=== PATIENT | male | born 1960 | race Caucasian/White ===

== ENCOUNTER 2017-09-25 20:51 | Emergency (ER) | payer OTHER ==
[~2017-09-25] VITALS: Ht 180.3 cm; Wt 99.8 kg
[~2017-09-25 20:51] MED LIST: AUGMENTIN 875-1 EACH PO; NORCO 5-325 TA1 EACH PO; PREDNISONE 20 M20 MG PO; PROAIR HFA8.5 GM INH; PROMETHAZINE-C120 ML PO
[2017-09-25] MEDS ORDERED: ASPIR 8181 MG PO (21:23)
[2017-09-25] MEDS ORDERED: LIPITOR 20 MG T20 M1 PO (21:23)
[2017-09-25 22:26] LABS: ABSOLUTE NEUTROPHILS 5.4 thou/uL (1.4-8.2); BASOPHILS 1.3 % (0.0-2.0); EOSINOPHILS 6.1 % (0.0-3.0); HEMATOCRIT 42.8 % (42.0-52.0); HEMOGLOBIN 14.8 gm/dL (14.0-18.0); LYMPHOCYTES 28.3 % (24.0-44.0); MCH 29.8 pg (26.0-34.0); MCHC 34.5 g/dL (28.0-37.0); MCV 86.3 fL (80.0-100.0); MONOCYTES 9.4 % (1.0-8.0); PLATELET COUNT 193 thou/uL (150-400); POLYS 54.9 % (36.0-66.0); RBC 4.96 mil/uL (4.50-6.00); RDW 13.9 % (10.5-14.5); WBC 9.8 thou/uL (4.0-11.0)
[2017-09-25 22:34] LABS: CALCIUM 8.9 mg/dL (8.5-10.1); POTASSIUM 3.8 mmol/L (3.5-5.1)
[2017-09-25 22:40] LABS: ALBUMIN 3.9 g/dL (3.4-5.0); TOTAL BILIRUBIN 0.3 mg/dL (<0.1-1.0); TOTAL PROTEIN 7.4 g/dL (6.4-8.2)
[2017-09-26] MEDS ORDERED: HYDROCODONE-AP1 EAC6 PO (00:21)
[2017-09-26 01:30] VITALS: BP 130/80
== END 2017-09-26 01:31 | disposition home or self-care (01) ==
LOC: ER 20:51
PROVIDERS: Physician Assistant
DX: R13.10 Dysphagia, unspecified (principal); M54.2 Cervicalgia; E78.00 Pure hypercholesterolemia, unspecified; Z90.49 Acquired absence of other specified parts of digestive tract; Z91.041 Radiographic dye allergy status

== ENCOUNTER → 2018-01-10 | Outpatient (CLI) | payer OTHER ==
[~2018-01-10] MED LIST changes: +ASPIR 8181 MG PO; +HYDROCODONE-AP1 EAC6 PO; +LIPITOR 20 MG T20 M1 PO
== END ==
LOC: MRI 08:09
DX: M75.102 Unspecified rotator cuff tear or rupture of left shoulder, not specified as traumatic (principal); E78.5 Hyperlipidemia, unspecified

== ENCOUNTER 2018-02-09 22:15 | Emergency (ER) | payer OTHER ==
[~2018-02-09] VITALS: Ht 180.3 cm; Wt 100.7 kg
--- NOTE | ~2018-02-09 | EKG ---
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1960 Requested By: Luis Chang Order Number: [id number] MD: Fernando Geller Measurements Intervals [place] Rate: 74 P: 44 NE: 143 QRS: 19 QRSD: 91 T: 17 QT: 386 QTc: 429 Interpretive Statements Sinus rhythm Abnormal R-wave progression, early transition Compared to ECG 08/09/2015 10:27:32 No significant changes Electronically Signed On 02-10-2018 13:04:33 CDT by Fernando Geller [email or web address] <ELECTRONICALLY SIGNED> By: Fernando Geller MD, [facility] 02/10/18 1304 2233 32 Fernando Geller MD, FACC /EPI
[2018-02-09 22:55] LABS: ABSOLUTE NEUTROPHILS 6.4 thou/uL (1.4-8.2); BASOPHILS 1.5 % (0.0-2.0); EOSINOPHILS 5.2 % (0.0-3.0); HEMATOCRIT 39.7 % (42.0-52.0); HEMOGLOBIN 13.9 gm/dL (14.0-18.0); LYMPHOCYTES 22.4 % (24.0-44.0); MCH 29.8 pg (26.0-34.0); MCHC 34.9 g/dL (28.0-37.0); MCV 85.4 fL (80.0-100.0); MONOCYTES 10.6 % (1.0-8.0); PLATELET COUNT 145 thou/uL (150-400); POLYS 60.3 % (36.0-66.0); RBC 4.64 mil/uL (4.50-6.00); RDW 13.4 % (10.5-14.5); URINE BILIRUBIN NEGATIVE (Negative); URINE BLOOD NEGATIVE (Negative); URINE CLARITY CLEAR; URINE COLOR YELLOW; URINE GLUCOSE-RANDOM* NEGATIVE (Negative); URINE KETONES NEGATIVE (Negative); URINE LEUKOCYTES-REFLEX NEGATIVE (Negative); URINE NITRITE-REFLEX NEGATIVE (Negative); URINE PROTEIN (DIPSTICK) NEGATIVE (Negative); URINE UROBILINOGEN 0.2 E.U./dl (0.2-1.0); WBC 10.6 thou/uL (4.0-11.0)
[2018-02-09 23:02] LABS: CALCIUM 8.4 mg/dL (8.5-10.1); CREATININE 1.2 mg/dL (0.7-1.3); POTASSIUM 3.6 mmol/L (3.5-5.1)
[2018-02-09 23:08] LABS: ALBUMIN 3.7 g/dL (3.4-5.0); TOTAL BILIRUBIN 0.4 mg/dL (<0.1-1.0); TOTAL PROTEIN 6.9 g/dL (6.4-8.2)
[2018-02-10] MEDS ORDERED: FLAGYL500 MG PO (01:36)
[2018-02-10] MEDS ORDERED: CIPROFLOXACIN500 M1 PO (01:36)
[2018-02-10 02:17] VITALS: BP 132/88
== END 2018-02-10 02:18 | disposition home or self-care (01) ==
LOC: ER 22:15
PROVIDERS: Emergency Medicine
DX: K57.92 Diverticulitis of intestine, part unspecified, without perforation or abscess without bleeding (principal); E78.00 Pure hypercholesterolemia, unspecified; J32.9 Chronic sinusitis, unspecified; K58.9 Irritable bowel syndrome, unspecified; Z90.49 Acquired absence of other specified parts of digestive tract; Z91.041 Radiographic dye allergy status

== ENCOUNTER 2018-04-11 05:25 | Day surgery (SDC) | payer OTHER ==
[~2018-04-11] VITALS: Ht 180.3 cm; Wt 99.8 kg
--- NOTE | ~2018-04-11 | O ---
[facility] [address] OPERATIVE REPORT Name: RICHA SWAN Room #: 150-4 [facility] M.R.#: [id number] Admission: 04/11/18 Attend Phys: Jignesh Ybarra Discharge: Date of : 60 Report #: [id number] THIS REPORT FOR: //name// CC: Jignesh MURRELLSSICA HORTENSIA DATE OF SERVICE: 04/11/2018 PREOPERATIVE DIAGNOSES: Left shoulder pain, rotator cuff tear, impingement syndrome, split tear in the proximal biceps tendon. POSTOPERATIVE DIAGNOSES: Left shoulder rotator cuff tear, small; long head of the biceps tendon tear and subluxation; subacromial bursitis; intra-articular synovitis. PROCEDURE PERFORMED: Left shoulder arthroscopy, rotator cuff repair, arthroscopic biceps tenodesis, extensive debridement. SURGEON: Jignesh Franklin MD ANESTHESIA: General with preoperative ultrasound-guided interscalene block. FLUIDS: Approximately 1000 mL crystalloid. ESTIMATED BLOOD LOSS: Less than 5 mL. DESCRIPTION OF PROCEDURE: After proper identification of the patient and operative site in preoperative holding area, the operative site was signed by myself. Prophylactic antibiotics given. The patient elected to receive an interscalene block after reviewing the risks, benefits, alternatives and potential complications with Anesthesia. After a satisfactory block, the patient was brought back to the operative suite after induction of satisfactory general anesthesia. The patient's left shoulder was examined. It was stable throughout a full arc of motion comparable to the preoperative assessment. The patient was carefully positioned in the right lateral decubitus position. Turpin bag and axillary roll were utilized to support the torso. The left shoulder was sterilely prepped and draped in the usual manner and placed in 10 pounds of balanced arthroscopic suspension. Posterior portal was established. Joint was inflated with an arthroscopic pump set at 40 mmHg. Anterior superior portal was created using a spinal needle for localization. Examination of the glenohumeral joint revealed some intra-articular synovitis noted within the rotator interval extending along the labrum as well as the biceps tendon and capsule. Some mild fraying of the superior and posterior inferior labrum were noted. This was carefully debrided with a motorized shaver. Long head of the biceps tendon demonstrated some partial thickness tearing and subluxation on the upper border of the subscapularis. The subscapularis itself was otherwise intact. [address] [address] OPERATIVE REPORT Name: RICHA SWAN Room #: 150-4 [facility] Stacy#: [id number] Admission: 04/11/18 Attend Phys: Jignesh Ybarra Discharge: Date of : 60 Report #: [id number] maneuver was utilized and no evidence of tearing was noted, especially on its upper border. Tendon grafting stitch was placed on the biceps. It was released off the superior labrum. The labrum had been carefully debrided. There was also an articular-sided tear that appeared to be high grade, possibly partial thickness in nature versus full thickness where a marking stitch was applied using a spinal needle for localization. Frayed portion of the tendon was debrided from the articular side. The remainder of the cuff appeared intact. No other intra-articular abnormalities were noted. Arthroscope was introduced into the subacromial space where a thickened subacromial bursa was encountered. Marking stitch in this area was palpated, probe easily passed through these few remaining fibers and I would classify this as a high-grade, near complete partial thickness tear of the supraspinatus. The few remaining fibers were taken down. This area of the greater tuberosity was carefully prepared with combination of hand and motorized instrumentation through a separate portal off the lateral border of the acromion. A single, double loaded 4.75 mm SwiveLock anchor was inserted. Sutures were passed in horizontal mattress fashion, tied with locking sliding knots, backed up with alternating half hitches. This was then secured with double row fixation using an additional SwiveLock anchor. The biceps tendon had been pulled out the anterolateral portal. Whipstitch was placed on the tendon. It was shortened and the frayed portion of the tendon had been debrided and removed. It was then secured with an Arthrex proximal biceps tenodesis button within the bicipital groove, which had been opened laterally. This was then tied with stable fixation. Mild fraying in the undersurface of the coracoacromial arch was noted. There was no significant prominence of the acromion from a bony standpoint and some of the hypertrophic bursal tissue was carefully debrided. The shoulder was thoroughly irrigated with normal saline. Portals closed with simple nylon stitches. The patient will be immobilized in a sling and abduction pillow for 6 weeks postoperatively. By: [id number] Jignesh Franklin MD /jen
[~2018-04-11 05:25] MED LIST changes: +CIPROFLOXACIN500 M1 PO; +CO Q-10100 MG PO; +FLAGYL500 MG PO; +VITAMIN D1000 UNI2 PO; +ZETIA10 MG PO
[2018-04-11 09:04] VITALS: BP 125/75
[2018-04-11 12:33] VITALS: BP 125/75
== END 2018-04-11 13:45 | disposition home or self-care (01) ==
LOC: TBA 05:25 → OR 05:25
DX: M75.102 Unspecified rotator cuff tear or rupture of left shoulder, not specified as traumatic (principal); S46.112A Strain of muscle, fascia and tendon of long head of biceps, left arm, initial encounter; S43.082A Other subluxation of left shoulder joint, initial encounter; M75.42 Impingement syndrome of left shoulder; M75.52 Bursitis of left shoulder; M65.812 Other synovitis and tenosynovitis, left shoulder; E78.5 Hyperlipidemia, unspecified; G47.33 Obstructive sleep apnea (adult) (pediatric); Z98.890 Other specified postprocedural states; Z79.899 Other long term (current) drug therapy; Z87.01 Personal history of pneumonia (recurrent); Z90.49 Acquired absence of other specified parts of digestive tract; Z87.19 Personal history of other diseases of the digestive system; Z91.041 Radiographic dye allergy status; Z88.8 Allergy status to other drugs, medicaments and biological substances; Z79.82 Long term (current) use of aspirin; X58.XXXA Exposure to other specified factors, initial encounter; Y93.89 Activity, other specified; Y92.89 Other specified places as the place of occurrence of the external cause; Y99.8 Other external cause status
CPT/HCPCS: 50010; 50101; 50172; 50386; 50417; 50935; 50950; 51038; 51445; 51847; 53610; 54170; 55430; 56525; 56527; 56530; 57103; 62110; 62900; 70005

== ENCOUNTER 2018-04-13 01:13 | Inpatient (IN) | payer OTHER ==
[~2018-04-13] VITALS: Ht 152.4 cm; Wt 99.8 kg
[2018-04-13] VITALS (7 sets, daily range): BP systolic 109–143; BP diastolic 66–87
--- NOTE | ~2018-04-13 | EKG ---
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
[2018-04-13 02:26] LABS: HEMATOCRIT 38.7 % (42.0-52.0); HEMOGLOBIN 13.2 gm/dL (14.0-18.0); MCH 29.8 pg (26.0-34.0); MCHC 34.1 g/dL (28.0-37.0); MCV 87.3 fL (80.0-100.0); RBC 4.43 mil/uL (4.50-6.00); RDW 13.3 % (10.5-14.5)
[2018-04-13 02:32] LABS: CREATININE 0.9 mg/dL (0.7-1.3); POTASSIUM 3.8 mmol/L (3.5-5.1)
[2018-04-13 03:30] LABS: ALBUMIN 3.5 g/dL (3.4-5.0); DIRECT BILIRUBIN 0.1 mg/dL (<0.1-0.3); TOTAL BILIRUBIN 0.3 mg/dL (<0.1-1.0); TOTAL PROTEIN 6.6 g/dL (6.4-8.2)
[2018-04-14 04:55] VITALS: BP 141/87
[2018-04-14 06:02] LABS: ALBUMIN 3.1 g/dL (3.4-5.0); CALCIUM 7.5 mg/dL (8.5-10.1); CREATININE 0.8 mg/dL (0.7-1.3); MAGNESIUM 1.8 mg/dL (1.8-2.4); POTASSIUM 3.8 mmol/L (3.5-5.1); TOTAL BILIRUBIN 0.4 mg/dL (<0.1-1.0); TOTAL PROTEIN 6.2 g/dL (6.4-8.2)
[2018-04-14 07:58] VITALS: BP 130/84
[2018-04-14 19:30] VITALS: BP 143/82
[2018-04-15] VITALS (7 sets, daily range): BP systolic 135–161; BP diastolic 76–85
[2018-04-15 14:48] LABS: ALBUMIN 3.4 g/dL (3.4-5.0); CALCIUM 8.9 mg/dL (8.5-10.1); CREATININE 1.2 mg/dL (0.7-1.3); POTASSIUM 3.7 mmol/L (3.5-5.1); TOTAL BILIRUBIN 0.5 mg/dL (<0.1-1.0); TOTAL PROTEIN 6.9 g/dL (6.4-8.2)
[2018-04-15] MEDS ORDERED: HYOSCYAMINE0.125 M1 PO (15:23)
== END 2018-04-15 18:25 | disposition home or self-care (01) | DRG 438 ==
LOC: ER 01:13 → 4E 04:42 → EROBS 04:42 → 4E 05:17
PROVIDERS: Emergency Medicine; Hospitalist; Nurse Practitioner
DX: K85.90 Acute pancreatitis without necrosis or infection, unspecified (principal); K65.0 Generalized (acute) peritonitis; E78.5 Hyperlipidemia, unspecified; G47.33 Obstructive sleep apnea (adult) (pediatric); K58.9 Irritable bowel syndrome, unspecified; Z90.49 Acquired absence of other specified parts of digestive tract; Z88.8 Allergy status to other drugs, medicaments and biological substances; Z88.1 Allergy status to other antibiotic agents; Z91.041 Radiographic dye allergy status; Z79.899 Other long term (current) drug therapy
CPT/HCPCS: 10783